=== PATIENT | male | born 1970 | race African-American/Black ===

== ENCOUNTER → 2018-04-26 | Outpatient (CLI) | payer BC ==
--- NOTE | 2018-04-26 12:06 | RADIOLOGY REPORT (SQ) ---
EXAM DESCRIPTION: MRI LT LOWER JOINT WITHOUT COMPLETED DATE/TIME: 04/26/2018 9:02 am REASON FOR STUDY: PAIN IN LEFT KNEE (M25.562) M25.562 PAIN IN LEFT KNEE COMPARISON: None. TECHNIQUE: Leftknee images acquired and stored on PACS. Multiplanar images include fat sensitive se quences as T1, water sensitive sequences as FST2 or STIR, cartilage sensitive sequences as FSPD, and gradient echo sequences. LIMITATIONS: None. FINDINGS: JOINT AND BURSAE: Mild joint effusion. No loose bodies. BONE CORTEX AND MARROW: No alteration of signal to suggest marrow replacement. No worrisome bone lesi ons. No occult fracture. ACL: Mild signal within the substance of the ACL. Given the history of trauma, possibly oral and 2 s prain. The major fiber bundles are intact, however. PCL: Intact. MCL: Intact. No periligamentous edema or fluid. LCL: Intact. No periligamentous edema or fluid. MEDIAL MENISCUS: Mild subchondral edema underlying the anterior meniscus root. Adjacent mild soft ti ssue edema. Please see series 6, image 11 and adjacent slices. Normal meniscus morphology otherwise . LATERAL MENISCUS: Complex tear in the posterior horn. Extruded appearance. MEDIAL COMPARTMENT: Intact. LATERAL COMPARTMENT: Chondral thinning. Partial thickness loss along the femoral condyle. No full-t hickness discrete defects or areas of significant subchondral cysts or edema PATELLA: Normal location. Fibrillation along the patellar apex but no full-thickness defects. Mild subchondral cysts along the femoral side of the articulation. EXTENSOR MECHANISM: Mild spurring along the anterior tibia medially associated with the above-noted s oft tissue and bone edema. Intact quadriceps and patellar tendons. SOFT TISSUES: Adjacent muscles and subcutaneous tissues normal. Normal flow void in popliteal artery and vein. OTHER: No other significant finding. IMPRESSION: 1. No high-grade tear appreciated in the ACL. Mild signal changes as above, but major fiber bundles are intact. 2. Lateral meniscus posterior horn tear. 3. Tibial spurring with bone and soft tissue edema along the anterior horn of the medial meniscus. T his could reflect meniscus tear or impingement pathology. Of note, the patellar tendon looks normal. 4. Chondromalacia patella. TECHNICAL DOCUMENTATION: JOB ID: [id number] [employer]- All Rights Reserved Reading location - IP/workstation name: [email or web address] [id number]
== END ==
LOC: RAD 08:16
PROVIDERS: ATTEND Orthopaedic Surgery Sports Medicine
DX: M25.562 Pain in left knee (principal); S83.282A Other tear of lateral meniscus, current injury, left knee, initial encounter; X58.XXXA Exposure to other specified factors, initial encounter; M22.42 Chondromalacia patellae, left knee

== ENCOUNTER → 2019-06-06 | Outpatient (CLI) | payer BC | LOC: RAD 10:19 | PROVIDERS: ATTEND Orthopaedic Surgery Sports Medicine | DX: M25.562 Pain in left knee (principal) ==